=== PATIENT | male | born 1960 | race African-American/Black ===

== ENCOUNTER 2024-05-23 15:00 | Outpatient (RCR) | payer BC, SELFPAY ==
--- OUTSIDE RECORDS SUMMARY | 2024-05-23 14:51 | XMS_ITS | Data Portability ---
Author Organization [facility], [facility] Address [address] [place] [address] Care Team Providers Care Sales Review Clerk Name Role Phone ALAINA RODRIGUEZ Primary Care Provider Assessment No assessment recorded. Plan of Treatment Reminders Order Date Submit Date Provider Last Modified By Organization Details Last Modified Time Details Appointments None recorded. Lab PSA, total, serum or plasma 2022 023 [facility], [address], [place], [address], 3 10:37:07 PSA, total, serum or plasma 2022 023 [facility], [address], [address], [place], [address], 3 11:46:17 Referral radiation oncologist referral - PLEASE CONTACT PATIENT TO SCHEDULE PATIENT SEE DR. YAIMA BOOTH FOR SALVAGE RADIATION TREATMENT. 2022 023 [email or web address] Yaima Booth MD, [address], [place], [address], 3 09:27:33 Procedures None recorded. Surgeries None recorded. Imaging None recorded. Medication Orders tadalafil 10 mg tablet 2022 023 [id number] [facility], [place], [place], [address], [place], [address], 3 22:08:41 Patient TargetsNo targets recorded. Patient Instructions Encounter Date Encounter Id Patient Instructions Last Modified By Organization Details Last Modified Time 10/26/2022 [id number] 61 y/o male presents for a PENALOZA follow up Urinary incontinence - Continue kegel exercises periodically to maintain urine control. ED - Steady improvement in erectile function. Stimulate regularly to maintain healthy penile tissue and monitor for further recovery in erections. Trial of Tadalafil 10-20 mg timed around sexual activity in attempt to improve erectile quality. Educated on side effects such as vision/hearing changes, hypotension, facial flushing, headache, nasal congestion, GERD, and priapism. [email or web address] Not available 10/26/2022 11:53:52 Reason for Referral PLEASE CONTACT PATIENT TO LAISHA CHOWDHURY PATIENT SEE DR. YAIMA BOOTH FOR SALVAGE RADIATION TREATMENT. Referring Physician: Tj Shields, Urology, Encounter Date: 12/18/2022 Results Created Date Observation Date Name Description Value Unit Range Abnormal Flag Note LastModifiedBy Organization Detail LastModifiedTime 08/08/1908/07/2022 PSA, TOTAL PSA, total <0.10 NG/mL <4.0 This lab resul t is being provi ded to you and your provi teddy at the same [facility] with the u ry Cures Act. Your provi teddy may not have had time to revie w and make recom menda tions based on the resul t. Pleas e allow up to one week for provi teddy revie w. Not Available [facility] [address] [place] [address] [address], [place], [address], 08/08/2022 10:37:06 12/12/19 23 12/11/2022 PSA, TOTAL PSA, total 0.21 NG/mL 0.00-4 .00 This lab resul t is being provi ded to you and your provi teddy at the same time in compl iance with the Centu ry Cures Act. Your provi teddy may not have had time to revie w and make recom menda tions based on the resul t. Pleas e allow up to one week for provi teddy revie w. Not Available [facility] [address], [place], [address], 12/12/2022 11:46:17 Result Notes None recorded. Problems Name Problem SNOMED Code Status Onset Date Resolution Date Notes Provider Name and Address Organization Details Recorded Time Carcinoma of prostate 410143031 Completed 202108/01/2021 Neil Barroso [facility] 13:42:09 Malignant tumor of prostate 726734886 Active 2021 Amy Barvahid [facility] 10:18:48 Problem Notes None recorded. Procedures Surgical History Date Name Laterality Status Provider Name and Address Organization Details Recorded Time 12/12/19 23 Blood Draw/INGOT CAR OPERATOR/PSA RESULTS completed Dayanna Rossi [facility] 12/11/2022 11:06:11 08/08/19 23 Blood Draw/INGOT CAR OPERATOR/PSA RESULTS completed Saroj Aparicio [facility] 08/07/2022 10:11:49 02/08/20 22 Blood Draw/INGOT CAR OPERATOR/PSA RESULTS completed [facility] 02/07/2022 15:57:18 01/08/20 22 Colonoscopy completed Neil Barroso [facility] 08/22/2023 14:30:50 10/18/19 22 Blood Draw/INGOT CAR OPERATOR/PSA RESULTS completed [facility] 10/17/2021 09:42:45 07/19/19 22 Blood Draw/INGOT CAR OPERATOR/PSA RESULTS [facility] 07/19/2021 11:38:46 04/18/20 21 Catheter Removal completed Zoë [facility] 04/18/2021 11:56:31 Removal of prostate completed Not Available Health Note 03/23/2022 14:09:59 Prostatectomy (turp) completed Not Available Health Note 03/23/2022 14:09:59 Imaging Results None recorded. Procedure Notes None recorded. Medical Equipment None Reported. Allergies No known drug allergies Medications Name Sig Start Date Stop Date Status Note LastModified by Organization Details LastModified Time atorvasta tin 20 mg tablet 10/26 completed HN: Patient reports no longer taking Not Available Not Available Not Available metoprolo l succinate ER 50 mg tablet,ex tended release 24 hr active Not Available Not Available Not Available lisinopri l 20 mg tablet active Not Available Not Available Not Available cephalexi n 500 mg capsule 05/30 completed HN: Patient reports no longer taking Not Available Not Available Not Available oxycodone 5 mg tablet 05/30 completed HN: Patient reports no longer taking Not Available Not Available Not Available tadalafil 5 mg tablet TAKE 1 TABLET BY MOUTH ONCE DAILY 08/01 completed HN: Patient reports no longer taking Not Available Not Available Not Available tadalafil 10 mg tablet TAKE 1-2 TABLETS BY MOUTH ABOUT 1-2 HOURS BEFORE SEXUAL ACTIVITY active HN: Patient reports no longer taking Not Available Not Available Not Available sildenafi l (pulmonar y hypertens ion) 20 mg tablet TAKE ONE TABLET BY MOUTH EVERY DAY 10/26 completed Not Available Not Available Not Available Vitamin D3 1000iu 1/day 10/26 completed HN: Patient reports no longer taking Not Available Not Available Not Available Vitals Date Recorded Body mass index (BMI) Body weight Body height Provider Name and Address Organization Details Last Updated DateTime 08/14/2022 24.4 kg/m2 10252.35512 48775 g 162.56 cm Not Available Health Note 08/14/2022 13:01:21 Date Recorded Body weight Body mass index (BMI) Body height Provider Name and Address Organization Details Last Updated DateTime 10/26/2022 14263.97914 70049 g 24 kg/m2 162.56 cm Not Available Health Note 10/26/2022 11:24:45 Date Recorded Body height Body mass index (BMI) Body weight Provider Name and Address Organization Details Last Updated DateTime 12/18/2022 162.56 cm 24 kg/m2 05983.93 g [facility] 12/18/2022 13:41:29 Social History Question Answer Notes LastModified by Organizat ion Details LastModified Time Tobacco Smoking Status Never Smoker Not Available Health Note 10/24/2022 23:30:56 What Is Your Level Of Alcohol Consumption? None [email or web address] Information not available 10/26/2022 What Is Your Level Of Caffeine Consumption? Occasional [email or web address] Information not available 10/24/2022 How Much Tobacco Do You Chew? None [email or web address] Information not available 10/24/2022 Do You Or Have You Ever Used E-cigarettes Or Vape? Never Used Electronic Cigarettes [email or web address] Information not available 10/24/2022 Race Black Information no t available 03/23/2022 Ethnicity Not /Latin o Information not available 08/01/2021 Preferred Language German Information not available 08/01/2021 Recreational Drug Use No Information not available 08/01/2021 What Was The Date Of Your Most Recent Tobacco Screening? 10/26/2022 [email or web address] Information not available 10/24/2022 What Is Your Relationship Status? [email or web address] Information not available 10/24/2022 Are You Sexually Active? Yes [email or web address] Information not available 10/24/2022 Do You Or Have You Ever Used Smokeless Tobacco? Never Used Smokeless Tobacco [email or web address] Information not available 10/24/2022 Do You Use Any Illicit Or Recreational Drugs? No [email or web address] Information not available 10/24/2022 Has Tobacco Cessation Counseling Been Provided? No Information not available 11/21/2021 Do You Or Have You Ever Used Any Other Forms Of Tobacco Or Nicotine? No [email or web address] Information not available 10/24/2021 Sex: Male Functional Status None recorded. Mental Status None recorded. Family History Relationship Description Onset Age of this Age Resolved Age Notes LastModified by Organization Details LastModified Time Father No current problems or disability [email or web address] Not available 08/01 09:03:24 Mother No current problems or disability [email or web address] Not available 08/01 09:03:24 Medical History Condition Response Sexually Transmitted Infection N Diabetes N Bleeding Disorder N High Blood Pressure Y Kidney Stones N Cancer Y Depression N Lung Disease N High Cholesterol Y GERD/Acid Reflux N Heart Disease N Immunizations Vaccine Type Date Status Note Provider Nam e and Address Organization Details Recorded Time SARS-COV-2 (COVID-19) vaccine, UNSPECIFIED completed DELIA Piedra [facility] 12/18/2022 13:41:46 SARS-COV-2 (COVID-19) vaccine, UNSPECIFIED 1 completed John Levinud null, [facility] 12/18/2022 13:41:46 SARS-COV-2 (COVID-19) vaccine, UNSPECIFIED 1 completed John Levinud null, [facility] 12/18/2022 13:41:46 SARS-COV-2 (COVID-19) vaccine, UNSPECIFIED 1 completed John Levinud null, [facility] 12/18/2022 13:41:46 SARS-COV-2 (COVID-19) vaccine, UNSPECIFIED 1 completed [facility]ud [facility], [facility] 12/18/20[facility] 13:41:46 SARS-COV-2 (COVID-19) vaccine, UNSPECIFIED 1 completed John Ordonez null, [facility] 12/18/2022 13:41:46 Tdap 7 completed [facility], [facility] 02/24/2022 10:18:15 [facility] 02/24/2022 10:18:16 Influenza, split virus, quadrivalent, PF 9 [facility], [facility] 02/24/2022 10:18:16 influenza, unspecified formulation 7 [facility], [facility] 02/24/2022 10:18:16 Influenza, split virus, trivalent, PF [address] 02/24/2022 10:18:16 COVID-19, mRNA, LNP-S, PF, 100 mcg/0.5mL dose or 50 mcg/0.25mL dose 1 [facility], [facility] 02/24/2022 10:18:16 Influenza, split virus, trivalent, preservative [address] [facility], [facility] 02/24/2022 10:18:16 COVID-19, mRNA, LNP-S, PF, 100 mcg/0.5mL dose or 50 mcg/0.25mL dose 1 completed Amy irvin [facility] 02/24/2022 10:18:16 SARS-COV-2 (COVID-19) vaccine, UNSPECIFIED 1 completed John irvin, [facility] 12/18/2022 13:41:46 SARS-COV-2 (COVID-19) vaccine, UNSPECIFIED 1 completed John irvin [facility] 12/18/2022 13:41:46 SARS-COV-2 (COVID-19) vaccine, UNSPECIFIED 1 completed John irvni [facility] 12/18/2022 13:41:46 COVID-19, mRNA, LNP-S, PF, 100 mcg/0.5mL dose or 50 mcg/0.25mL dose 1 completed John irvin [facility] 12/18/2022 13:41:45 Past Encounters Encounter ID Performer Location Encounter Start Date Encounter Closed Date Diagnosis/Indication Diagnosis SNOMED-CT Code Diagnosis ICD10 Code [id number] Zoë Prasad [facility] [address] [place] [phone] 0 04/18/2021 11:36:59 04/18/2021 12:18:21 Malignant tumor of prostate 094059479 C61 [id number] MARIBELL GIBSON [facility]_[address] [place] [phone] 2 05/30/2021 11:19:45 05/30/2021 12:04:23 Male urinary stress incontinence 274024362 N39.3 Erectile d ysfunction following radical prostatectomy 5399858675 14237 N52.31 [id number] [facility] [address] [place] [address] [id number] 0 07/19/2021 11:31:19 07/19/2021 11:39:49 Malignant tumor of prostate 874069481 C61 [id number] MD Eliseo [facility] [address] [place] [address] [phone] 0 08/01/2021 13:32:04 08/01/2021 14:09:51 Carcinoma of prostate 910233573 C61 [id number] Ut Cindy [facility] [address] [place] [address] [place] [address] [phone] 0 10/17/2021 09:41:31 10/17/2021 09:43:45 Carcinoma of prostate 687480988 C61 [id number] Tj Shields [facility] [address] [place] [address] [place] [address] [phone] 0 10/24/2021 11:51:57 10/24/2021 12:38:26 Malignant tumor of prostate 395162651 C61 [id number] [facility] MAR[facility]EE[facility] [address] [facility] [address] [place] [address] 11/21/2021 10:51:39 11/21/2021 11:23:25 Erectile dysfunction following radical prostatectomy 4680311041 87837 N52.31 Male urina ry stress incontinence 010361839 N39.3 [id number] Ut Cindy [facility] [address] [place] [address] [phone] 0 02/07/2022 15:54:27 02/07/2022 15:58:38 Malignant tumor of prostate 832466861 C61 [id number] Tj Shields MD [facility] [address],[facility] [address] [place] [address] 02/24/2022 10:00:12 02/24/2022 11:27:32 Malignant tumor of prostate 058359756 C61 [id number] GRANT MARIEE, [facility] [address] [place] [address] [place] [address] [id number] 0 03/23/2022 14:25:32 03/23/2022 14:56:26 Male urinary stress incontinence 798973362 N39.3 Erectile d ysfunction following radical prostatectomy 7370990346 49943 N52.31 [id number] [facility] [address] [place] [address],it e [address] [place] [address] [id number] 0 08/07/2022 10:10:06 08/07/2022 10:16:28 Malignant tumor of prostate 686117336 C61 [id number] Tj Shields MD [facility] [address] [facility] [place] [phone] 0 08/14/2022 13:00:56 08/14/2022 13:32:53 Carcinoma of prostate 523291960 C61 [id number] GRANT MARIEEMARIBELL [facility] [address] [facility] [place] [phone] 0 10/26/2022 11:24:02 10/26/2022 11:55:13 Erectile dysfunction following radical prostatectomy 7932697804 60101 N52.31 Male urina ry stress incontinence 965210347 N39.3 [id number] Dayanna Rossi [facility] [address] [place] [address],S[address] [place] [address] [phone] 0 12/11/2022 11:04:41 12/11/2022 11:37:27 Malignant tumor of prostate 646898343 C61 [id number] Tj Shields MD [facility] [address] [place] [address],Suit [address] [place] [address] [phone] 0 12/18/2022 13:39:57 12/18/2022 14:24:38 History of malignant neoplasm of prostate 954121090 Z85.46 Health Concerns Section Related Observation LastModified by Organization Detai ls LastModified Time None Recorded Concern Status LastModified by Organization Details LastModified Time None Recorded Advance Directives Directive None Recorded Payers Encounter Date Sequence Insurance Name Policy Number Policy Cruz Covered Member ID Cruz Member ID Guarantor Name 08/07/2022 1 [place] [id number] Tj Robin [id number] Tj Robin 08/14/2022 1 [place] [id number] Tj Robin [id number] Tj Robin 10/26/2022 1 [place] [id number] Tj Robin [id number] Tj Robin 12/11/2022 1 [place] [id number] Tj Kelly [id number] Tj Kelly 12/18/2022 1 [place] [id number] Tj Kelly [id number] Tj Kelly Notes Date Note Type Note Provider Name and Address Organization Details Recorded Time 3 text/html patient is s/p robot prostate 18 months agogood urine control Tj Shields MD [address] [place] [address],[address], [phone], [facility] 08/14/2022 13:17:02 3 text/html Erectile DysfunctionReported bypatient.Notes:Patient presents for a PENALOZA follow up. Good recovery in erectile function since last visit. Discontinued Sildenafil due to recovery in erectile function. He is able to achieve an ehs 3-3.5 with adequate maintenance. No pain or curvature to penis with erections.IncontinenceRe ported bypatient.Notes:Patient presents for urinary incontinence follow up. He is completing kegel exercises daily. He is wearing 1 pad a day for confidence. He has not had any urinary incontinence episodes since last visit. RRP on 04/08/[address] Shields. Bilateral nerve sparing. MARIBELL GIBSON [address] [place] [address], [phone], [facility] 10/26/2022 11:54:31 3 text/html PATIENT IS ALMOST 3 YEARS S/P ROBOT PROSTATECTOMY - 20 MONTHSNOW W FIRST RECURRENCE PSA OF .21 Continence Function Questionnaire:[1] Urinary control:Total control[1] Leaked urine:Never Tj Shields MD [address] [place] [address],[facility] [address], [place], [phone], [facility] 12/18/2022 13:59:41
== END 2024-09-20 23:59 | disposition home or self-care (01) ==
PROVIDERS: PCP Family Medicine; Visit Provider Physician Assistant
DX: N39.3 Stress incontinence (female) (male) (principal); R33.9 Retention of urine, unspecified; R35.1 Nocturia; R27.8 Other lack of coordination; Z51.89 Encounter for other specified aftercare
CPT/HCPCS: 97110; 97140; 97162; 97535